=== PATIENT | male | born 1985 | race Caucasian/White ===

== ENCOUNTER 2019-10-30 18:05 | Emergency (ER) | payer BC, OTHER ==
[2019-10-30] MEDS ORDERED: Morphine 4 MG/ML Syringe IVPUSH ONE (18:12)
[2019-10-30] MEDS ORDERED: Ondansetron 4 MG/2 ML SDV IVPUSH ONE (18:12)
--- NOTE | 2019-10-30 18:20 | EDM.PDOC ---
ED HPI GENERAL MEDICAL PROBLEM - General Chief Complaint: Upper Extremity Injury/Pain Stated Complaint: LEFT SHOULDER PAIN Time Seen by Provider: 10/30/19 18:13 Source of Information: Reports: Patient History Limitations: Reports: No Limitations - History of Present Illness INITIAL COMMENTS - FREE TEXT/NARRATIVE: This 34 year old male was admitted to the ED with a chief complaint of pain in his left shoulder after falling while getting caught up in a cow roping incident. He complained of sudden pain in his left shoulder. He denies any Neuro/Vasc complaints. He denies any chest pain or SOB. He denies any other complaints at this time. - Related Data Allergies Allergy/AdvReac Type Severity Reaction Status Date / Time No Known Allergies Allergy Verified 10/30/19 18:16 Home Meds: Home Meds Lisinopril/Hydrochlorothiazide [Lisinopril-Hctz 20-12.5 mg Tab] 1 tab PO DAILY 11/05/18 [History] Omeprazole Magnesium [Prilosec Otc] 20 mg PO DAILY 11/29/18 [History] oxyCODONE HCl/Acetaminophen [Percocet 7.5-325 mg Tablet] 1 each PO Q6H PRN 5 Days #20 tablet 10/30/19 [Rx] Past Medical History HEENT History: Reports: Other (See Below) Other HEENT History: wears glasses Cardiovascular History: Reports: Hypertension Respiratory History: Reports: None Gastrointestinal History: Reports: Other (See Below) Other Gastrointestinal History: occasional heartburn, dysphagia Genitourinary History: Reports: None Musculoskeletal History: Reports: Fracture Other Musculoskeletal History: hx fx ribs, nose, wrist and arm Neurological History: Reports: Concussion Psychiatric History: Reports: None Endocrine/Metabolic History: Reports: None Hematologic History: Reports: None Immunologic History: Reports: None Oncologic (Cancer) History: Reports: None Dermatologic History: Reports: None - Infectious Disease History Infectious Disease History: Reports: Chicken Pox - Past Surgical History Head Surgeries/Procedures: Reports: None HEENT Surgical History: Reports: Eye Surgery, Oral Surgery Other HEENT Surgeries/Procedures: eye surgery, wisdom teeth extraction Cardiovascular Surgical History: Reports: None Respiratory Surgical History: Reports: None GI Surgical History: Reports: EGD Male Surgical History: Reports: None Endocrine Surgical History: Reports: None Neurological Surgical History: Reports: None Musculoskeletal Surgical History: Reports: Arthroscopic Knee Other Musculoskeletal Surgeries/Procedures:: left knee surgery x2 Oncologic Surgical History: Reports: None Dermatological Surgical History: Reports: None Social & Family History - Family History Family Medical History: Noncontributory - Caffeine Use Caffeine Use: Reports: Energy Drinks Review of Systems - Review of Systems Review Of Systems: Comprehensive ROS is negative, except as noted in HPI. ED EXAM, GENERAL - Physical Exam Exam: See Below Exam Limited By: No Limitations General Appearance: Alert, WD/WN, Moderate Distress (complaining of pain in his left shoulder. He rates the pain a 9/10.) Eye Exam: Bilateral Eye: EOMI, Normal Inspection, PERRL Ears: Normal External Exam, Hearing Grossly Normal Nose: Normal Inspection Throat/Mouth: Normal Inspection, Normal Oropharynx Head: Atraumatic, Normocephalic Neck: Normal Inspection, Supple, Full Range of Motion Respiratory/Chest: No Respiratory Distress, Lungs Clear, Normal Breath Sounds Cardiovascular: Normal Peripheral Pulses, Regular Rate, Rhythm, No Edema, No Murmur, No Rub Peripheral Pulses: 3+: Brachial (L), Brachial (R), Radial (L), Radial (R), 4+: Carotid (L), Carotid (R) GI/Abdominal: Normal Bowel Sounds, Soft, Non-Tender, No Organomegaly (Male) Exam: Deferred Rectal (Males) Exam: Deferred Back Exam: Normal Inspection Extremities: No Pedal Edema, Normal Capillary Refill, Other (deformity noted over the mid clavical area with crepitus. Decrease ROM in all planes of the left shoulder with terminal pain. Tenderness is noted over the area. Neuro/ Vasc intact. All other extremities are unremarkable.) Neurological: Alert, Oriented (times 4), CN II-XII Intact, Normal Reflexes, No Motor/Sensory Deficits Psychiatric: Normal Affect, Normal Mood Skin Exam: Warm, Dry, Intact, Normal Color, No Rash Course - Vital Signs Text/Narrative:: I reviewed this patients x-rays as a wet read. He has a 3 degree separation of the left shoulder. Neuro/Vasc is intact. I discussed this with the patient and he will be given the name of a Orthopedic Surgeon for follow up. He will be discharged with a Sling and a Swath (Shoulder immobilizer). He agrees with the discharge plan. Last Recorded V/S: Last Vital Signs Temp 96.7 F L 10/30/19 18:16 Pulse 91 10/30/19 18:16 Resp 16 10/30/19 18:16 BP 150/98 H 10/30/19 18:16 Pulse Ox 96 10/30/19 18:16 - Orders/Labs/Meds Orders: Active Orders 24 hr Category Date Time Status Shoulder Comp Lt [CR] Stat Exams 10/30/19 18:14 Taken DME for Discharge [COMM] Stat Oth 10/30/19 18:39 Ordered Meds: Medications Discontinued Medications Generic Name Dose Route Start Last Admin Trade Name Silvina PRN Reason Stop Dose Admin Morphine Sulfate 4 mg 10/30/19 18:12 10/30/19 18:21 Morphine IVPUSH 10/30/19 18:13 4 mg ONETIME ONE Administration Ondansetron HCl 4 mg 10/30/19 18:12 10/30/19 18:20 Zofran IVPUSH 10/30/19 18:13 4 mg ONETIME ONE Administration Departure - Departure Time of Disposition: 18:47 Disposition: Home, Self-Care 01 Condition: Good Clinical Impression: Separation of AC joint, type 3 Qualifiers: Encounter type: initial encounter Laterality: left Qualified Code(s): S43.102A - Unspecified dislocation of left acromioclavicular joint, initial encounter - Discharge Information *PRESCRIPTION DRUG MONITORING PROGRAM REVIEWED*: Yes *COPY OF PRESCRIPTION DRUG MONITORING REPORT IN PATIENT FRANTZ: Yes Instructions: Acromioclavicular Separation Referrals: Jessica Sheldon PA [Primary Care Provider] - Forms: ED Department Discharge, ED Return to Work/School Form Additional Instructions: Take all medications as directed. Follow up with the Orthopedic Surgeon in the next 1-3 days. Wear your Sling and Swath (Shoulder immobilizer) at all times. Cold compresses to the left shoulder for the next three days (30 minutes on and one off while awake). Rest for the next 24 hours. Return to the ED if your condition gets worse or should you have any questions or concerns. The following information is given to patients seen in the emergency department who are being discharged to home. This information is to outline your options for follow-up care. We provide all patients seen in our emergency department with a follow-up referral. The need for follow-up, as well as the timing and circumstances, are variable depending upon the specifics of your emergency department visit. If you don't have a primary care physician on staff, we will provide you with a referral. We always advise you to contact your personal physician following an emergency department visit to inform them of the circumstance of the visit and for follow-up with them and/or the need for any referrals to a consulting specialist. The emergency department will also refer you to a specialist when appropriate. This referral assures that you have the opportunity for follow-up care with a specialist. All of these measure are taken in an effort to provide you with optimal care, which includes your follow-up. Under all circumstances we always encourage you to contact your private physician who remains a resource for coordinating your care. When calling for follow-up care, please make the office aware that this follow-up is from your recent emergency room visit. If for any reason you are refused follow-up, please contact the [facility] Emergency Department at and asked to speak to the emergency department charge nurse. Sepsis Event Note - Focused Exam Vital Signs: Vital Signs Temp Pulse Resp BP Pulse Ox 10/30/19 18:16 96.7 F L 91 16 150/98 H 96 Date Exam was Performed: 10/30/19 Time Exam was Performed: 18:41 - My Orders Last 24 Hours: My Active Orders 10/30/19 18:14 Shoulder Comp Lt [CR] Stat 10/30/19 18:39 DME for Discharge [COMM] Stat - Assessment/Plan Last 24 Hours: My Active Orders 10/30/19 18:14 Shoulder Comp Lt [CR] Stat 10/30/19 18:39 DME for Discharge [COMM] Stat
--- NOTE | 2019-10-30 18:52 | CR ---
Indication: Fall injury. Technique: Left shoulder 2 views. Comparison: None. Findings: No acute fracture. There is an acromioclavicular joint injury with widening of the joint space to 1.7 cm. There is superior displacement of the clavicle relative to the acromion, however not above the superior border of the acromion. The visualized lungs are clear. Impression: Acromioclavicular joint injury with widening of the joint space and elevation of the clavicle relative to the acromion. Dictated by Raissa Knott MD @ Oct 30 2019 6:44PM Signed by Dr. Raissa Knott @ Oct 30 2019 6:49PM
== END 2019-10-30 19:15 | disposition home or self-care (01) ==
LOC: MW.ED 18:05
DX: S43.102A Unspecified dislocation of left acromioclavicular joint, initial encounter (principal); I10 Essential (primary) hypertension; Z79.899 Other long term (current) drug therapy; W23.0XXA Caught, crushed, jammed, or pinched between moving objects, initial encounter
CPT/HCPCS: 73030; 96374; 96375; 99283; J2270; J2405